=== PATIENT | female | born 1965 ===

== ENCOUNTER → 2021-07-31 | Outpatient (CLI) | payer BC ==
[~2021-07-31] MED LIST: ADVIL200 MG PO; ALLEGRA 180MG180 MG PO; AMOXICILLIN 8751 TAB PO; CELEXA10 MG PO; ESTRACE2 MG PO; GLUCOSAMIN 500 PO; MOBIC15 MG PO; MULTI VITAMINS1 TAB PO; PRILOSEC 20MG20 MG PO; VITAMIN B COMPL1 SGL PO
== END ==
LOC: ZCOL.LAB 15:25
DX: Z01.89 Encounter for other specified special examinations (principal)